=== PATIENT | male | born 1965 | race Caucasian/White ===

== ENCOUNTER 2022-11-05 18:17 | Emergency (ER) | payer OTHER ==
[~2022-11-05] VITALS: Ht 157.5 cm; Wt 81.6 kg
[2022-11-05 18:36] VITALS: BP 159/88
[2022-11-05] MEDS ORDERED: KETOROLAC 30 MG/ML VIAL IM ONE (19:30)
--- NOTE | 2022-11-05 19:35 | NUR ---
CALLED IN LOBBY AND OUTSIDE , TO BRING TO ROOM, NO ANSWER
--- NOTE | 2022-11-05 19:48 | NUR ---
TO BED 4 FROM LOBBY
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
[2022-11-05] MEDS ORDERED: EMLAC TP (20:27)
[2022-11-05] MEDS ORDERED: IBUP-2213 PO (20:27)
[2022-11-05] MEDS ORDERED: ACET-2619 PO (20:27)
[2022-11-05] MEDS ORDERED: METH-1681 PO (20:27)
[2022-11-05 21:30] VITALS: BP 159/88
--- NOTE | 2022-11-05 21:30 | NUR ---
Patient discharged with v/s stable. Written and verbal after care instructions given and explained. Patient verbalized understanding. Ambulatory with steady gait. All questions addressed prior to discharge. Advised to follow up with PMD.
== END 2022-11-05 21:31 | disposition home or self-care (01) ==
LOC: MED 18:17
DX: S76.311A Strain of muscle, fascia and tendon of the posterior muscle group at thigh level, right thigh, initial encounter (principal); Z79.899 Other long term (current) drug therapy; Z79.1 Long term (current) use of non-steroidal anti-inflammatories (NSAID); Z98.890 Other specified postprocedural states; X58.XXXA Exposure to other specified factors, initial encounter; Y92.89 Other specified places as the place of occurrence of the external cause; Y93.89 Activity, other specified; Y99.0 Civilian activity done for income or pay
CPT/HCPCS: 73552; 96372; 99283; J1885